=== PATIENT | male | born 1980 | race Caucasian/White ===

== ENCOUNTER 2018-06-20 04:38 | Emergency (ER) | payer OTHER ==
--- NOTE | 2018-06-20 05:30 | PDOC ---
Medical Decision Making - Medical Decision Making 06/20/18 05:30 Patient seen by the advanced practice provider under my direct supervision. Ancillary testing reviewed as necessary. I agree with plan as outlined by the advanced practice provider. *DC/Admit/Observation/Transfer Diagnosis at time of Disposition: Scabies - Discharge Dispostion Disposition: HOME Condition at time of disposition: Fair - Prescriptions Prescriptions: Diphenhydramine HCl [Benadryl -] 25 mg PO Q8H PRN #21 capsule PRN Reason: For Itching Permethrin 5% Topical Cream [Elimite -] 1 applic TP ONCE #1 tube - Referrals Referrals: Marvin Hess MD [Primary Care Provider] - - Patient Instructions Printed Discharge Instructions: DI for Scabies Additional Instructions: apply lotion to body and leave it on for 14 hours. you may take benadryl every 6-8 hours for itching. follow up with [facility] doctor as soon as possible. wash all your clothes - Post Discharge Activity Forms/Work/School Notes: Back to Work
[2018-06-20 05:34] VITALS: BP 112/71; PULSE 73; TEMP 97.7; BMI 31.4
--- NOTE | 2018-06-20 05:48 | PDOC ---
History of Present Illness - General Chief Complaint: Rash Stated Complaint: ALLERGIC RX Time Seen by Provider: 06/20/18 05:24 History Source: Patient - History of Present Illness Initial Comments: 06/20/18 05:38 38 year old male reports that he was working with the [employer] noted to have itchy rash to body since last night. rash worse in the groin, axilla hand and feet. Past History - Past Medical History Allergies/Adverse Reactions: Allergies Allergy/AdvReac Type Severity Reaction Status Date / Time No Known Allergies Allergy Verified 06/20/18 05:34 Home Medications: Ambulatory Orders Calamine/Zinc Oxide [Calamine Lotion] 118 ml TP BID #20 suspension 11/21/11 predniSONE [Deltasone -] 40 mg PO DAILY #7 tablet 11/21/11 Diphenhydramine HCl [Benadryl -] 25 mg PO Q8H PRN #21 capsule 06/20/18 Permethrin 5% Topical Cream [Elimite -] 1 applic TP ONCE #1 tube 06/20/18 - Suicide/Smoking/Psychosocial Hx Smoking Status: No Smoking History: Never smoked Have you smoked in the past 12 months: No Number of Cigarettes Smoked Daily: 0 Information on smoking cessation initiated: No Hx Alcohol Use: Yes (Social) Drug/Substance Use Hx: Yes (Marijuana) Review of Systems - Review of Systems Able to Perform ROS?: Yes Is the patient limited [place] proficient: No Constitutional: No: Symptoms Reported, See HPI, Chills, Diaphoresis, Fever, Loss of Appetite, Malaise, Night Sweats, Weakness, Weight Stable, Unintentional Wgt. Loss, Unexplained wgt Loss, Other Integumentary: Yes: Pruritus, Rash *Physical Exam - Vital Signs Last Vital Signs Temp Pulse Resp BP Pulse Ox 97.7 F 73 19 112/71 98 06/20/18 04:38 06/20/18 04:38 06/20/18 04:38 06/20/18 04:38 06/20/18 04:38 - Physical Exam General Appearance: Yes: Appropriately Dressed Extremity: positive: Other (bites to interphalageal area, arms, axila, and groin. has maculapaular rash to abdomen) Integumentary: positive: Normal Color, Dry, Warm Neurologic: positive: Fully Oriented, Alert Progress Note - Progress Note Progress Note: scabies p: permetherin cream benadryl for itching *DC/Admit/Observation/Transfer Diagnosis at time of Disposition: Scabies - Discharge Dispostion Disposition: HOME Condition at time of disposition: Fair - Prescriptions Prescriptions: Diphenhydramine HCl [Benadryl -] 25 mg PO Q8H PRN #21 capsule PRN Reason: For Itching Permethrin 5% Topical Cream [Elimite -] 1 applic TP ONCE #1 tube - Referrals Referrals: Marvin Hess MD [Primary Care Provider] - - Patient Instructions Printed Discharge Instructions: DI for Scabies Additional Instructions: apply lotion to body and leave it on for 14 hours. you may take benadryl every 6-8 hours for itching. follow up with [facility] doctor as soon as possible. wash all your clothes - Post Discharge Activity Forms/Work/School Notes: Back to Work
== END 2018-06-20 06:58 | disposition home or self-care (01) ==
LOC: JER 04:38
DX: B86 Scabies (principal)
CPT/HCPCS: 99281-25